=== PATIENT | female | born 1975 | race African-American/Black ===

== ENCOUNTER 2022-07-01 21:06 | Emergency (ER) | payer OTHER ==
[~2022-07-01] VITALS: Ht 162.6 cm; Wt 77.0 kg
[2022-07-01] MEDS ORDERED: IPRATROPIUM/ALBUTEROL 0.5-3(2.5)MG/3ML NEB HHN ONE (21:30)
[2022-07-01] MEDS ORDERED: METHYLPREDNISOLONE SOD SUCC 125 MG/2 ML VIAL IV ONE (21:30)
[2022-07-01] MEDS ORDERED: MAGNESIUM 2 G PREMIX 50 ML IV ONE (21:30)
[2022-07-01] MEDS ORDERED: ALBU6.7H15 INH (23:21)
[2022-07-01] MEDS ORDERED: P20 MT (23:21)
[2022-07-02 00:02] VITALS: BP 152/98
== END 2022-07-02 00:04 | disposition home or self-care (01) ==
LOC: ER 21:06
DX: J45.901 Unspecified asthma with (acute) exacerbation (principal)
CPT/HCPCS: 94640; 96365; 96375; 99284; J2930; J3475; Z7610